=== PATIENT | female | born 1995 | race Caucasian/White ===

== ENCOUNTER → 2023-06-14 14:36 | Outpatient (REF) | payer BC, SELFPAY | LOC: PNTC 14:36 | PROVIDERS: ATTENDING PHYSICIAN Obstetrics & Gynecology | DX: Z36.0 Encounter for antenatal screening for chromosomal anomalies (principal); Z36.84 Encounter for antenatal screening for fetal lung maturity | CPT/HCPCS: 76801; 76813 ==

== ENCOUNTER 2023-12-18 19:27 | Inpatient (IN) | payer BC, SELFPAY ==
[2023-12-18 19:42] VITALS: BP 137/88; BMI 28.1
[2023-12-18] MEDS: LR 1000 IV ×2 (21:15→23:45)
[2023-12-18 21:23] LABS: % Basophils 0.1 % (0-2); % Eosinophils 0.2 % (0-6); % Immature Granulocytes 0.2 % (0-0.5); % Lymphocytes 15.4 % (20.5-51.1); % Monocytes 9.6 % (1.7-9.3); % Neutrophils 74.5 % (42.2-75.2); Absolute Lymphocytes 1.3 10^3/uL (1.2-3.4); Absolute Monocytes 0.8 10^3/uL (0.1-0.6); Absolute Neutrophils 6.3 10^3/uL (1.4-6.5); Hematocrit 36.1 % (37.0-47.0); Mean Corpuscular Hgb 31.4 pg (27.0-31.0); Mean Corpuscular Volume 87.2 fL (81.0-99.0); Mean Platelet Volume 13.6 fL (7.4-10.4); Nucleated Red Blood Cells % 0 %; Platelet Count 142 10^3/uL (130-400); Red Blood Cell Count 4.14 10^6/uL (4.20-5.40); Red Cell Dist. Width 12.7 % (11.5-14.5); White Blood Cell Count 8.4 10^3/uL (4.8-10.8)
[2023-12-18 21:32] LABS: ALT (SGPT) 23 U/L (0-35); AST (SGOT) 29 U/L (14-36); Albumin 3.9 g/dl (3.5-5.0); Alkaline Phosphatase 172 U/L (38-126); Blood Urea Nitrogen 17 mg/dl (7-17); Calcium 10.1 mg/dl (8.4-10.2); Carbon Dioxide 16 mmol/L (22-30); Chloride 106 mmol/L (98-107); Estimated Creatinine Clearance > 125 ml/min; Glucose 76 mg/dl (70-99); Potassium 4.2 mmol/L (3.5-5.1); Sodium 135 mmol/L (135-145); Total Bilirubin 0.4 mg/dl (0.2-1.3); Total Protein 6.5 g/dl (6.3-8.2); eGFR > 60.00
[2023-12-18] MEDS: SUBLIMAZE 100 MCG EPIDURAL (23:23)
[2023-12-18] MEDS: FENTANYL/BUPIVACAINE 100 EPIDURAL (23:23)
[2023-12-19 00:03] LABS: Protein/creatinine Ratio 0.1; Urine Protein 11 mg/dl
[2023-12-19] MEDS: PITOCIN 30 UNITS/NSS 500 ML IV (06:25)
[2023-12-19] MEDS: FENTANYL/BUPIVACAINE 100 EPIDURAL (06:49)
[2023-12-19] MEDS: LR 1000 IV (09:00)
[2023-12-19] MEDS: MOTRIN 600 MG PO ×2 (14:38→21:41)
[2023-12-20] MEDS: MOTRIN 600 MG PO ×2 (04:33→19:38)
[2023-12-20 04:39] LABS: Hematocrit 29.8 % (37.0-47.0); Hemoglobin 10.6 g/dL (12.0-16.0)
[2023-12-20] MEDS: SENOKOT-S 1 TABLET PO (09:18)
[2023-12-20] MEDS: PRENATAL PLUS 1 TABLET PO (09:18)
[2023-12-21] MEDS: MOTRIN 600 MG PO ×2 (02:05→08:09)
[2023-12-21] MEDS: PRENATAL PLUS 1 TABLET PO (08:06)
[2023-12-21] MEDS: FEOSOL 325 MG PO (08:06)
[2023-12-21 15:12] LABS: Syphilis/T. pallidum Ab Reflex Negative (Negative)
== END 2023-12-21 12:39 | disposition home or self-care (01) | DRG 807 ==
LOC: LDRP 19:27
PROVIDERS: ADMITTING PHYSICIAN Obstetrics & Gynecology; ATTENDING PHYSICIAN Obstetrics & Gynecology
PROC: 10E0XZZ Delivery of Products of Conception, External Approach (ICD-10-PCS; 2023-12-19)
PROC: 10907ZC Drainage of Amniotic Fluid, Therapeutic from Products of Conception, Via Natural or Artificial Opening (ICD-10-PCS; 2023-12-19)
PROC: 0HQ9XZZ Repair Perineum Skin, External Approach (ICD-10-PCS; 2023-12-19)
DX: O77.0 Labor and delivery complicated by meconium in amniotic fluid (principal); Z37.0 Single live birth; O70.0 First degree perineal laceration during delivery; Z3A.39 39 weeks gestation of pregnancy
CPT/HCPCS: 36415; 80053; 82570; 84156; 85014; 85018; 85025; 86780; 86850; 86900; 86901

== ENCOUNTER 2024-04-14 12:59 | Emergency (ER) | payer BC, SELFPAY ==
--- NOTE | 2024-04-14 13:26 | ED.GENMED ---
ED Provider Triage
<Giovanni Cooper PA-C - Last Filed: 04/14/24 13:28>
-
Patient seen by provider in Triage?: Seen in Triage
29 yo female presents for non traumatic midline low back pain x 1-2 days. No LE paresthesias. Took advil without relief. No fevers or LUTS. 3 mo at home, not
Looks well, ambulating steadily.
Check XR, UA
History of Present Illness
<Giovanni Cooper PA-C - Last Filed: 04/14/24 13:28>
General
Chief Complaint: Back Pain
Time Seen by Provider: 04/14/24 15:35
<Ifrah Douglass PA-C - Last Filed: 04/14/24 22:32>
General
Source: patient
Exam Limitations: none
Nursing documentation reviewed up to this point in time: agreed with
History of Present Illness
History of Present Illness:
pt is a 29 y/o F with no sig pmh
here with lower back pain tht started mildly yesteray near the middle of her lumbar region but then she bent over and suddenly felt it worsen and since has been walking semi-hunched over because of the pain she gets when her back is straight
she has not had any fever, chills, urinary symptms, incontinence, numbness/tingling/weeakness in the legs
she tried motrin 200 mg 3 times yesterday
no h/o chronic back problems
lmp 3 weeks ago
no meds tried today
Past History
<Ifrah Douglass PA-C - Last Filed: 04/14/24 22:32>
Past History
ED Past Medical History: None
ED Past Surgical History: None
Social History
Tobacco: Non-smoker
Alcohol: None
Drug: None
Personal:
Living: with family
Employment: Employed
Review of Systems
<Ifrah Douglass PA-C - Last Filed: 04/14/24 22:32>
Review of Systems
Allergies reviewed?: Yes
All Other Systems: Not applicable
Phy Exam
<Ifrah Douglass PA-C - Last Filed: 04/14/24 22:32>
Physical Exam
Physical Exam:
GENERAL: Alert , in no apparent distress, comfortable at rest
HEAD: NCAT
NECK: no midline tenderness, active ROM intact, no paraspinal muscle tenderness;
CARDIAC: Regular rate and rhythm, no edema
LUNGS: Clear breath sounds bilaterally, no acute respiratory distress, no wheezes/rales/rhonchi
ABDOMEN: Soft, without focal tenderness, no r/g, no cvat, normal bowel sounds, nondistended
NEUROLOGICAL: Alert and oriented, no focal neuro deficits, CN intact, 5/5 strength, sensation intact, ambulation slight limp left leg
SKIN: Warm and dry,
MUSCULOSKELETAL: No edema, well perfused.
Patient has no tenderness to palpation of the hip, no SI joint tenderness
Back: no midline lumbar tendenress
b/l lower paraspinal tendrenss;
neg straight leg raise b/l
PSYCH: Normal and appropriate interaction.
Course
<Giovanni Cooper PA-C - Last Filed: 04/14/24 13:28>
Orders/Labs/Results
Orders:
Orders
04/14/24 13:24
CR Lumbar Spine Comp Min 4 Vw* Urgent
Comment:
Reason For Exam: injury
04/14/24 13:25
Test Result ONCE
04/14/24 16:51
HCG, Urine Qualitative Screen Urgent
Date Specimen was Collected: 04/14/24
Time Specimen was Collected: 13:25
Urinalysis Reflex To Culture Urgent
Date Specimen was Collected: 04/14/24
Time Specimen was Collected: :
Urine Microscopic Reflex Cult Urgent
Urine Culture Urgent
SHADIA Source: U
Specimen Description:
Date Specimen was Collected: 04/14/24
Time Specimen was Collected: :
04/14/24 16:54
Acetaminophen [Tylenol] 1,000 mg PO NOW STA
Diazepam [Valium] 5 mg PO NOW STA
Ketorolac [Toradol] 30 mg IM NOW STA
Abnormal Lab Results
04/14/24
16:51
Leukocyte Esterase Rfl Trace A
(Negative)
Urine Bacteria (Reflex) Many A
(Negative)
Vital Signs
Initial and Last Documented VS:
Initial Vital Signs
Temp Pulse Resp Pulse Ox
36.6 C 110 20 98
04/14/24 13:22 04/14/24 13:22 04/14/24 13:22 04/14/24 13:22
Last Documented Vital Signs
Temp Pulse Resp BP Pulse Ox
36.6 C 98 18 118/73 96
04/14/24 13:22 04/14/24 15:47 04/14/24 15:47 04/14/24 15:47 04/14/24 15:47
<Ifrah Douglass PA-C - Last Filed: 04/14/24 22:32>
Orders/Labs/Results
Orders:
Orders
04/14/24 13:24
CR Lumbar Spine Comp Min 4 Vw* Urgent
Comment:
Reason For Exam: injury
04/14/24 13:25
Test Result ONCE
04/14/24 16:51
HCG, Urine Qualitative Screen Urgent
Date Specimen was Collected: 04/14/24
Time Specimen was Collected: 13:25
Urinalysis Reflex To Culture Urgent
Date Specimen was Collected: 04/14/24
Time Specimen was Collected: 13:25
Urine Microscopic Reflex Cult Urgent
Urine Culture Urgent
SHADIA Source: U
Specimen Description:
Date Specimen was Collected: 04/14/24
Time Specimen was Collected: :25
04/14/24 16:54
Acetaminophen [Tylenol] 1,000 mg PO NOW STA
Diazepam [Valium] 5 mg PO NOW STA
Ketorolac [Toradol] 30 mg IM NOW STA
Abnormal Lab Results
04/14/24
16:51
Leukocyte Esterase Rfl Trace A
(Negative)
Urine Bacteria (Reflex) Many A
(Negative)
Vital Signs
Initial and Last Documented VS:
Initial Vital Signs
Temp Pulse Resp Pulse Ox
36.6 C 110 20 98
04/14/24 13:22 04/14/24 13:22 04/14/24 13:22 04/14/24 13:22
Last Documented Vital Signs
Temp Pulse Resp BP Pulse Ox
36.6 C 98 18 118/73 96
04/14/24 13:22 04/14/24 15:47 04/14/24 15:47 04/14/24 15:47 04/14/24 15:47
<Ifrah Douglass PA-C - Last Filed: 04/14/24 22:32>
MDM/Problems Addressed
Differential Diagnosis Includes:
back ain, lumbar strain, disc herniation
MDM/Problems Addressed:
29 y/o F with no pmh
here with lower back pain
felt mildly and then worse after bending yesterday
nonradiating
no red flag symptoms
no urinary syptoms
only took 3 doses of motrin 200 mg which is well under her dose
on exam initially tachycardic but without movement for a while she has normal vitals
her pain is def positional, worse with flexion and movement
she has neg straight leg raise b/l
normal sensation
no abdominl tednerens
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
suspect lumbar strain
unlikely to be ureterolithaisis
unlikely lumbar radiculopathy
nsaids
tylenol
valium
lidocaine patch
<Ifrah Douglass PA-C - Last Filed: 04/14/24 22:32>
*Critical Care Note
Total Time (30-74mins, 75-104mins- exclusive of procedures): Not Applicable
ED Attending Note
<Giovanni Cooper PA-C - Last Filed: 04/14/24 13:28>
-
Portions of this chart may have been created with voice recognition software.� Occasional wrong word or��sound alike� substitutions may have occurred due to the inherent limitations of voice recognition software.
Discharge Plan
Departure
Patient Disposition: Home (Routine Discharge)
Date of Disposition: 04/14/24
Time of Disposition: 17:30
Patient with high blood pressure during this ER visit?: No
Condition: Fair
Covid-19: Not Applicable
Discharge Problem:
Acute lumbar myofascial strain
Instructions: Low Back Pain (DC)
Prescriptions:
New
diazepam [Valium] 5 mg tablet
5 mg PO BID PRN (Reason: muscle spasm) Qty: 10 0RF
lidocaine 5 % adhesive patch,medicated
1 patch topical DAILY PRN (Reason: BACK PAIN) Qty: 15 0RF
No Action
prenat.vits,andrew,dxh-peee-bxxcg Tablet
1 tab PO DAILY
acetaminophen 325 mg Tablet
650 mg PO Q4HPRN PRN (Reason: mild pain) Qty: 0 0RF
sennosides-docusate sodium 8.6-50 mg Tablet
1 tab PO DAILYPRN PRN (Reason: constipation) Qty: 0 0RF
ferrous sulfate [FeroSul] 325 mg (65 mg iron) Tablet
325 mg PO DAILY Qty: 0 0RF
ibuprofen 600 mg Tablet
600 mg PO Q6HPRN PRN (Reason: moderate pain/cramps) Qty: 40 0RF
Referrals:
UNKNOWN - PT DOES,NOT KNOW [Family Provider] -
Activity Restrictions/Additional Instructions:
YOUR PAIN IS LIKELY FROM PULLED MUSCLES AND SPASM
TRY MOTRIN 600 MG 3 TIMES A DAY WITH FOOD
TYLENOL 1000 MG 3 TIMES A DAY NEEDED
VALIUM 5 MG EVER 8-12 HOURS NEEDED FOR MUSCLE SPASM
YOU CAN APPLY HEAT OFF AND ON
ALSO TRY LIDOCAINE PATCH 12 HOURS ON 12 HOURS OFF NEEDED
HEAT WHEN THE PATCHES ARE OFF
Interventions
Interventions:
*Risk Screen - Suicide Last Done: 04/14/24 15:48
*General Assessment Last Done: 04/14/24 13:22
*Neglect/Abuse Screening Last Done: 04/14/24 15:48
*Nursing Disposition Last Done: 04/14/24 18:14
ED-Musculoskeletal Assessment Last Done: 04/14/24 15:48
Discharge Date and Time
Discharge Date/Time: 04/14/24 18:15
Print Language: MONGOLIAN
[2024-04-14 15:47] VITALS: BP 118/73
[2024-04-14 17:03] LABS: Urine Albumin Negative (Neg - Trace); Urine Bilirubin Negative (Negative); Urine Character Clear (Clear); Urine Color Yellow; Urine Glucose Negative (Negative); Urine Ketone Negative (Negative); Urine Leukocyte Trace (Negative); Urine Nitrite Negative (Negative); Urine Occult Blood Negative (Negative); Urine Urobilinogen Negative (Neg - 1+)
[2024-04-14 17:11] LABS: HCG, Urine Qualitative Screen Negative
[2024-04-14 17:19] LABS: Urine Red Blood Cell 0-2 /HPF (0-2); Urine Squamous Cell >30 /LPF (Few); Urine White Cell 0-2 /HPF (0-5)
[2024-04-14 17:20] LABS: Urine Bacteria Many (Negative)
[2024-04-14] MEDS: TYLENOL 1000 MG PO (17:24)
[2024-04-14] MEDS: VALIUM 5 MG PO (17:24)
[2024-04-14] MEDS: TORADOL 30 MG IM (17:25)
== END 2024-04-14 18:15 | disposition home or self-care (01) ==
LOC: EMR 12:59
PROVIDERS: Physician Assistant; EMERGENCY PHYSICIAN Emergency Medicine
DX: S39.012A Strain of muscle, fascia and tendon of lower back, initial encounter (principal); X50.1XXA Overexertion from prolonged static or awkward postures, initial encounter
CPT/HCPCS: 99284; 96372; 72110; 81003; 81015; 81025; 87086

== ENCOUNTER 2025-02-17 01:29 | Inpatient (IN) | payer BC, SELFPAY ==
[2025-02-17 01:53] VITALS: BP 140/96; BMI 27.8
[2025-02-17] MEDS: LR 1000 IV ×2 (01:53→03:24)
[2025-02-17 02:25] LABS: Hematocrit 38.8 % (37.0-47.0); Hemoglobin 13.7 g/dL (12.0-16.0); Mean Corp Hgb Conc. 35.3 g/dL (33.0-37.0); Mean Corpuscular Volume 87.8 fL (81.0-99.0); Nucleated Red Blood Cells % 0 %; Platelet Count 136 10^3/uL (130-400); Red Cell Dist. Width 13.2 % (11.5-14.5)
[2025-02-17] MEDS: FENTANYL/BUPIVACAINE 100 EPIDURAL (02:46)
[2025-02-17] MEDS: SUBLIMAZE 100 MCG EPIDURAL (02:46)
[2025-02-17] MEDS: PITOCIN 30 UNITS/NSS 500 ML IV (06:14)
[2025-02-17] MEDS: COLACE 100 MG PO (19:38)
[2025-02-17] MEDS: MOTRIN 600 MG PO (21:54)
[2025-02-18] MEDS: COLACE PO (04:34)
[2025-02-18 06:17] LABS: Hematocrit 40.1 % (37.0-47.0); Hemoglobin 13.7 g/dL (12.0-16.0)
[2025-02-18] MEDS: PRENATAL PLUS PO (07:54)
[2025-02-18] MEDS: COLACE 100 MG PO ×2 (07:54→20:29)
[2025-02-18] MEDS: PRENATAL PLUS 1 TABLET PO (07:55)
[2025-02-18] MEDS: MOTRIN 600 MG PO ×2 (07:55→17:00)
[2025-02-20 11:44] LABS: Syphilis/T. pallidum Ab Reflex Negative (Negative)
== END 2025-02-19 11:00 | disposition home or self-care (01) | DRG 807 ==
LOC: LDRP 01:29
PROVIDERS: ADMITTING PHYSICIAN Obstetrics & Gynecology; FAMILY PHYSICIAN Nurse Practitioner Family
PROC: 10E0XZZ Delivery of Products of Conception, External Approach (ICD-10-PCS; 2025-02-17)
PROC: 3E0234Z Introduction of Serum, Toxoid and Vaccine into Muscle, Percutaneous Approach (ICD-10-PCS; 2025-02-19)
DX: O69.81X0 Labor and delivery complicated by cord around neck, without compression, not applicable or unspecified (principal); Z37.0 Single live birth; Z3A.38 38 weeks gestation of pregnancy; Z23 Encounter for immunization
CPT/HCPCS: 36415; 85014; 85018; 85025; 86780; 86850; 86900; 86901